=== PATIENT | female | born 1960 | race Caucasian/White ===

== ENCOUNTER 2017-09-09 07:31 | Day surgery (SDC) | payer BC ==
[~2017-09-09 07:31] MED LIST: Metoclopramide 10 MG/2 ML SDV IV PRN; Sodium Chloride 0.9% 1,000 ML IV SCH; Sodium Chloride 0.9% 10 ML Syringe FLUSH PRN
[2017-09-09] MEDS ORDERED: Propofol 200 MG/20 ML SDV ONE (09:05)
--- NOTE | 2017-09-09 15:18 | OR ---
DATE OF OPERATION: 09/09/2017 PREOPERATIVE DIAGNOSIS: Screening colonoscopy. POSTOPERATIVE DIAGNOSIS: Normal colonoscopy. OPERATION: Screening colonoscopy. COMPLICATIONS: None. DRAINS: None. SPECIMENS: None. ESTIMATED BLOOD LOSS: Zero. ANESTHESIA: General propofol anesthesia. INDICATION: Ms. Conte is a 57-year-old female who had a previous colonoscopy 10 years ago, which was normal, she is here for routine screening. She is of average risk. The above-mentioned procedure was explained. The risks, benefits, complications were explained. Patient understood and agreed and she was brought to the operating room. DESCRIPTION OF PROCEDURE: The patient was brought to the operating room, placed in a left lateral decubitus position on the operating room table. Satisfactory general propofol anesthesia was administered. We began by performing a rectal examination which was within normal limits. I then placed the endoscope by finger introduction into the rectum and subsequently advanced to the level of the cecum. Cecum was identified by the appendiceal orifice, the ileocecal valve, and cecal strap. Next, careful evaluation of mucosa was performed on withdrawal. There was a medium-sized telangiectasia noted just proximal to the hepatic flexure on the ascending colon. This was not bleeding, but was relatively noticeable. The remainder of the ascending colon was within normal limits. Careful evaluation of the colon revealed no other telangiectasias, no neoplastic growths, no polyps or diverticula. Next, retroflexion was performed in the rectum which revealed no significant findings. The colon was then decompressed and the endoscope was withdrawn. The patient tolerated the procedure well. There were no complications. Instrument count was correct. The patient was awoken in the OR and taken to the PACU for recovery. Recommend followup colonoscopy in 10 years. MONCHO /[id number]
== END 2017-09-09 11:15 | disposition home or self-care (01) ==
LOC: LB.SDS 07:31
PROVIDERS: ATTEND Surgery
DX: Z12.11 Encounter for screening for malignant neoplasm of colon (principal); I78.1 Nevus, non-neoplastic; I10 Essential (primary) hypertension; E11.9 Type 2 diabetes mellitus without complications; E78.5 Hyperlipidemia, unspecified; Z79.2 Long term (current) use of antibiotics; Z79.899 Other long term (current) drug therapy
CPT/HCPCS: 45378; 82962; J2704; J7040

== ENCOUNTER 2019-09-03 10:30 | Day surgery (SDC) | payer BC ==
[2019-09-03] MEDS: Sodium Chloride 0.9% 1,000 ML IV SCH (10:45)
[2019-09-03] MEDS ORDERED: Propofol 200 MG/20 ML SDV ONE (14:10)
--- NOTE | 2019-09-03 18:27 | OR ---
DATE OF OPERATION: 09/03/2019 SURGEON: Liu Salazar MD PREOPERATIVE DIAGNOSIS: History of GERD. POSTOPERATIVE DIAGNOSIS: History of GERD. PROCEDURE: EGD. ANESTHESIA: MAC. ESTIMATED BLOOD LOSS: None. COMPLICATIONS: None. INDICATION FOR PROCEDURE: The patient is a 59-year-old female who has had a previous history of GERD for the past 3 years, had intermittently been taking omeprazole over the past month, has only taking omeprazole 3 times in the past month and a half. Previously, she had taken it every 5 days or so. The patient has had previous barium swallow showing a small hiatal hernia as well as possible thickening of the distal esophagus, has never had a previous scope before. She is here today for that. DESCRIPTION OF PROCEDURE: Informed consent was obtained from the patient. The patient is taken to the operating room and placed on the table in the left lateral decubitus position. Monitored anesthesia care was administered. Esophagogastroscope advanced through the mouth and directed toward the duodenum. Second portion of the duodenum was reached. Duodenum was normal. Gastric antrum was normal. No signs of gastritis or ulcers. Retroflexion performed and the stomach was also unremarkable. Scope was then slowly withdrawn. She did have a small 2 cm or so hiatal hernia. Otherwise, distal esophagus appeared normal as well. The scope then withdrawn. FINDINGS: Small hiatal hernia, otherwise normal EGD. RECOMMENDATIONS: Would recommend to continue acid suppression as needed. ALBERTO /[id number]
== END 2019-09-03 15:20 | disposition home or self-care (01) ==
LOC: LB.SDS 10:30
PROVIDERS: ATTEND Surgery
DX: K21.9 Gastro-esophageal reflux disease without esophagitis (principal); K44.9 Diaphragmatic hernia without obstruction or gangrene; Z79.4 Long term (current) use of insulin; Z79.899 Other long term (current) drug therapy
CPT/HCPCS: 43235; J2704; J7030; 43246

== ENCOUNTER → 2019-09-04 | Outpatient (CLI) | payer BC ==
--- NOTE | 2019-09-06 15:54 | CRLMY ---
DATE OF SERVICE: 09/04/19 CLINICAL DATA: SELF REFERRAL SCREENING BILATERAL MAMMOGRAMS: Comparison is made to a prior exam dated 08/27/18. The breasts are heterogeneously dense bilaterally. No significant interval changes bilaterally from the prior study. There is no evidence of malignancy. IMPRESSION: No evidence of malignancy. One year follow-up mammography is recommended. BI-RAD C: Mammogram - The breasts are heterogeneously dense, which may obscure small masses ACR 1 - Negative Mammogram. The exam was reviewed with Carl CAD. [id number] JAELYN
== END ==
LOC: LB.MAM 09:02
PROVIDERS: ATTEND Family Medicine
DX: Z12.31 Encounter for screening mammogram for malignant neoplasm of breast (principal)
CPT/HCPCS: 77067

== ENCOUNTER → 2019-10-16 | Outpatient (CLI) | payer BC | LOC: LB.CLINIC 08:21 | PROVIDERS: ATTEND Family Medicine | DX: E78.5 Hyperlipidemia, unspecified (principal); E10.9 Type 1 diabetes mellitus without complications; I10 Essential (primary) hypertension | CPT/HCPCS: 36415; 80053; 80061; 82043; 85025 ==

== ENCOUNTER → 2019-10-16 | Outpatient (CLI) | payer BC | LOC: LB.CLINIC 08:19 | PROVIDERS: ATTEND Family Medicine | DX: E10.9 Type 1 diabetes mellitus without complications (principal) | CPT/HCPCS: 36415; 83036 ==

== ENCOUNTER 2024-05-30 07:24 | Emergency (ER) | payer BC ==
[2024-05-30] MEDS ORDERED: Amoxicillin 500 MG Cap ONE (08:30)
== END 2024-05-30 08:46 | disposition home or self-care (01) ==
LOC: LB.ED 07:24
DX: L03.211 Cellulitis of face (principal); I10 Essential (primary) hypertension; E10.9 Type 1 diabetes mellitus without complications; K21.9 Gastro-esophageal reflux disease without esophagitis; Z79.899 Other long term (current) drug therapy; Z88.2 Allergy status to sulfonamides
CPT/HCPCS: 99283; A9270-GY

== ENCOUNTER 2025-05-12 07:01 | Day surgery (SDC) | payer MEDICARE ==
[2025-05-12] MEDS ORDERED: Propofol 500 MG/50 ML SDV ONE (08:30)
[2025-05-12 08:56] VITALS: BP 137/65; PULSE 54
== END 2025-05-12 09:40 | disposition home or self-care (01) ==
LOC: LB.SDS 07:01
PROVIDERS: ATTEND Surgery
DX: D12.2 Benign neoplasm of ascending colon (principal); D12.3 Benign neoplasm of transverse colon; K63.5 Polyp of colon; K62.6 Ulcer of anus and rectum; I10 Essential (primary) hypertension; E78.5 Hyperlipidemia, unspecified; E11.9 Type 2 diabetes mellitus without complications; K21.9 Gastro-esophageal reflux disease without esophagitis; Z79.899 Other long term (current) drug therapy
CPT/HCPCS: 88305; J2704; J7030